=== PATIENT | male | born 1955 | race African-American/Black ===

== ENCOUNTER 2016-05-12 16:07 | Emergency (ER) | payer OTHER ==
[~2016-05-12] VITALS: Ht 188 cm; Wt 120.2 kg
[~2016-05-12 16:07] MED LIST: ASPI81TA2 PO; ATEN25TA; HYDR1TAB
[2016-05-12 16:37] VITALS: BP 136/100
[2016-05-12] MEDS ORDERED: HYDROCODONE/APAP 10/325MG 1 EA TABLET ONE (17:18)
[2016-05-12] MEDS ORDERED: HYDROCODONE/APAP 10/325MG 1 EA TABLET PO ONE (17:30)
== END 2016-05-12 17:25 | disposition home or self-care (01) ==
LOC: ER 16:13
DX: L03.115 Cellulitis of right lower limb (principal); I10 Essential (primary) hypertension; F17.200 Nicotine dependence, unspecified, uncomplicated
CPT/HCPCS: A4606; Z7610

== ENCOUNTER 2017-01-11 15:59 | Inpatient (IN) | payer OTHER ==
[~2017-01-11] VITALS: Ht 190.5 cm; Wt 116.1 kg
[~2017-01-11 15:59] MED LIST changes: -ATEN25TA; +ATEN25TA PO
--- NOTE | 2017-01-11 16:00 | NUR ---
CARSON FROM [employer] C/O NEAR SYNCOPE, HYPOTENSIVE 98/70. NOTED SATING LOW 80'S RA. PER PT REPORT HE TOOK CODEINE ON AN EMPTY STOMACH AND STARTED FEELING UNWELL AFTER. AT BS FOR EVAL. IV ACCESS WINDOW GLASS CUTTER OFF. SAFETY AND COMFORT MEASURES PROVIDED. WILL MONITOR.
[2017-01-11 16:26] LABS: BASOPHILS # (AUTO) 0.2 /CMM (0.0-0.2); BASOPHILS % (AUTO) 2.4 % (0.0-2.0); EOSINOPHILS # (AUTO) 0.2 /CMM (0.0-0.7); EOSINOPHILS % (AUTO) 1.8 % (0.0-6.0); HEMATOCRIT 42 % (39-51); HEMOGLOBIN 13.7 g/dL (13.5-17.5); LYMPHOCYTES # (AUTO) 2.1 /CMM (0.8-4.8); LYMPHOCYTES % (AUTO) 24.2 % (20.0-44.0); MEAN CORPUSCULAR HEMOGLOBIN 31 PG (26.0-33.0); MEAN CORPUSCULAR HGB CONC 33 g/dl (31.0-36.0); MEAN CORPUSCULAR VOLUME 94 fL (80-96); MONOCYTES # (AUTO) 0.5 /CMM (0.1-1.30); NEUTROPHILS # (AUTO) 5.8 /CMM (1.8-8.9); NEUTROPHILS % (AUTO) 65.6 % (43.0-81.0); PLATELET COUNT (AUTO) 146 /CMM (150-450); RDW COEFFICIENT OF VARIATION 12.8 (11.5-15.0); RED BLOOD CELL COUNT(AUTO) 4.45 MIL/uL (4.5-6.0); WHITE BLOOD COUNT (AUTO) 8.8 K/uL (4.3-11.0)
[2017-01-11] MEDS ORDERED: IV NS 0.9% 1,000 ML BAG IV ONE (16:30)
--- NOTE | 2017-01-11 16:30 | NUR ---
RT AT FOR ABG.
[2017-01-11] MEDS ORDERED: RANI150T12 PO (16:32)
[2017-01-11] MEDS ORDERED: ACET1TAB12 PO (16:32)
[2017-01-11] MEDS ORDERED: PRAV10TA40 PO (16:32)
[2017-01-11] MEDS ORDERED: ASPI81TA2 PO (16:32)
[2017-01-11] MEDS ORDERED: AMOX500C2 PO (16:32)
[2017-01-11 16:37] LABS: CALCIUM, SERUM 9.5 mg/dL (8.5-10.1); CREATININE 1.2 mg/dL (0.6-1.3); POTASSIUM 3.7 mmol/L (3.5-5.1)
[2017-01-11 16:43] LABS: TROPONIN I 0.059 ng/mL (0.00-0.056)
[2017-01-11 16:55] LABS: ABG BASE EXCESS -1.5 mmol/L; ABG OXYGEN SATURATION 91.3 % (92.0-98.5); ABG PCO2 40.7 mmHg (35.0-45.0); ABG PO2 64.8 mmHg (75.0-100.0); AaDO2 130.2 mmHg; COHb 2.2 % (0.5-1.5); O2Hb 88.4 % (94.0-97.0); SITE, ABG Right Radial; VENT MODE, BG NASAL CANNULA
--- NOTE | 2017-01-11 17:14 | NUR ---
[facility] PAGED [phone], DR GARCÍA PAVING RAMMER
[2017-01-11] MEDS ORDERED: ACETAMINOPHEN 325 MG TABLET PO PRN (17:30)
[2017-01-11] MEDS ORDERED: Z GUARD REMEDY 2 OZ OINT TP PRN (17:30)
[2017-01-11] MEDS ORDERED: ONDANSETRON HCL/PF 4 MG/2 ML VIAL IVP PRN (17:30)
[2017-01-11] MEDS ORDERED: ZOLPIDEM TARTRATE 5 MG TABLET PO PRN (17:30)
[2017-01-11] MEDS ORDERED: HYDROCODONE/APAP 5/325MG 1 EACH TABLET PO PRN (17:30)
[2017-01-11] MEDS ORDERED: MAGNESIUM HYDROXIDE 30 ML UDC PO PRN (17:30)
[2017-01-11] MEDS ORDERED: MAG HYDROX/AL HYDROX/SIMETH 30 ML UDC PO PRN (17:30)
--- NOTE | 2017-01-11 17:49 | NUR ---
BED- TELE 116-1
--- NOTE | 2017-01-11 18:40 | NUR ---
REPORT GIVEN TO ANAIS CARMEN FOR TELE ROOM 116-1.
[2017-01-11 20:00] VITALS: BP 100/76
--- NOTE | 2017-01-11 20:00 | NUR ---
RN ADMITTING TEL NOTES ADMITTED 61 YR OLD PT, AOX4, ON NC@ 2L, WELL TOLERATED, DENIES ANY PAIN, AMBULATORY WITH STEADY GAIT, SKIN INTACT. ADMITED FOR SYNCOPE, V/S STABLE @ THIS TIME. TROPONIN IN ER WAS 0.059 WITH REPEAT ORDER X2 WILL F/U ON RESULTS. PT STABLE AT THIS TIME ALL ADMITING ORDERS CARRIED PER PROTOCOL BY DR GARCÍA, ALL PT NEEDS ATTENDED, WITH SAFETY MEASURES IN PLACE. CALL LIGHT WITHIN REACH.
[2017-01-11] MEDS: ATORVASTATIN 10 MG TABLET PO SCH (21:41)
[2017-01-11] MEDS: IV NS 0.9% 1,000 ML IV PRN (21:50)
--- NOTE | 2017-01-11 23:56 | NUR ---
called verification manager dr lerma for troponin results trending from 00.59 to 0.715, v/s stable denies any discomfort, notified dr lerma that asa dose scheduled for 1800 was not given, with request to give and wait for last troponin to be done.
[2017-01-11] MEDS: ASPIRIN 81 MG TAB.CHEW PO SCH (23:58)
[2017-01-12] VITALS: BP 111/69
[2017-01-12 04:00] VITALS: BP 134/69
[2017-01-12 04:52] LABS: BASOPHILS % (AUTO) 0.2 % (0.0-2.0); EOSINOPHILS # (AUTO) 0.2 /CMM (0.0-0.7); EOSINOPHILS % (AUTO) 1.6 % (0.0-6.0); HEMATOCRIT 39 % (39-51); HEMOGLOBIN 12.7 g/dL (13.5-17.5); LYMPHOCYTES # (AUTO) 2.9 /CMM (0.8-4.8); LYMPHOCYTES % (AUTO) 28.2 % (20.0-44.0); MEAN CORPUSCULAR HEMOGLOBIN 32 PG (26.0-33.0); MEAN CORPUSCULAR HGB CONC 33 g/dl (31.0-36.0); MEAN CORPUSCULAR VOLUME 96 fL (80-96); MONOCYTES # (AUTO) 0.7 /CMM (0.1-1.30); MONOCYTES % (AUTO) 7.4 % (2.0-12.0); NEUTROPHILS # (AUTO) 6.3 /CMM (1.8-8.9); NEUTROPHILS % (AUTO) 62.6 % (43.0-81.0); PLATELET COUNT (AUTO) 137 /CMM (150-450); RDW COEFFICIENT OF VARIATION 13.9 (11.5-15.0); RED BLOOD CELL COUNT(AUTO) 4.03 MIL/uL (4.5-6.0); WHITE BLOOD COUNT (AUTO) 10.1 K/uL (4.3-11.0)
[2017-01-12 05:14] LABS: CALCIUM, SERUM 8.9 mg/dL (8.5-10.1); MAGNESIUM 1.9 mg/dL (1.8-2.4); PHOSPHORUS 3.5 mg/dL (2.5-4.9); POTASSIUM 4.2 mmol/L (3.5-5.1)
[2017-01-12 05:22] LABS: THYROID STIMULATING HORMONE 1.224 uIU/mL (0.358-3.74)
--- NOTE | 2017-01-12 06:32 | NUR ---
RN CLOSING TEL NOTES ENDORSED PT AOX4, ON NC@ 2L, WELL TOLERATED, DENIES ANY PAIN, AMBULATORY WITH STEADY GAIT, SKIN INTACT. ADMITED FOR SYNCOPE, V/S STABLE @ THIS TIME. TROPONIN IN ER WAS 0.059 WITH REPEAT ORDER X2 WILL F/U ON RESULTS. PT STABLE AT THIS TIME ALL ADMITING ORDERS CARRIED PER PROTOCOL BY DR GARCÍA, ALL PT NEEDS ATTENDED, WITH SAFETY MEASURES IN PLACE. CALL LIGHT WITHIN REACH. 0430 TROPONIN RESULTS RECEIVED 0.649H TRENDING DOWN, BNP 1163H, DR GERMAIN AWARE OF 2330 RESULTS, WILL ENDORSE TO F/U
[2017-01-12 08:00] VITALS: BP 112/82
[2017-01-12 12:00] VITALS: BP 120/72
[2017-01-12 16:00] VITALS: BP 137/83
[2017-01-12] MEDS: ASPIRIN 81 MG TAB.CHEW PO SCH (17:42)
--- NOTE | 2017-01-12 18:29 | NUR ---
PLEASE NOTE THAT PATIENT REMAINS IN NSR WITH NO SYNCOPAL EPISODES. PATIENT AMBULATED OOB WITH BRPS WITHOUT ASSIST ALL SHIFT AND ALSO WASHED UP IN BATHROOM WITHOUT ASSIST. APPETITE GOOD. PLEASANT AND COOPERATIVE. PATIENT SHOWS NO SIGNS OF ACUTE CARDIAC/RESPIRATORY DISTRESS OR SUPPRESSION.
--- NOTE | 2017-01-12 19:34 | NUR ---
ELECTRODE CLEANER INITIAL NOTE PT RECEIVED IN NO ACUTE DISTRESS AT THIS TIME. PT IS A/O X4 ABLE TO MAKE NEEDS KNOWN. ON TELE WITH SR. PATIENT IS ABLE TO WALK AND GO TO RESTROOM BY HIS OWN WITH STANDBY ASSISTANCE. PT HAS A LEFT HAND 18G THAT IS RUNNING IVF NS @75CC/HR. COMFORT AND SAFETY MEASURES TO BE ENSURED DURING THE SHIFT. TO CONTINUE TO MONITOR DURING THE SHIFT.
[2017-01-12 20:00] VITALS: BP 132/86
[2017-01-12] MEDS: ATORVASTATIN 10 MG TABLET PO SCH (21:01)
[2017-01-13] VITALS (7 sets, daily range): BP systolic 126–140; BP diastolic 79–89
--- NOTE | 2017-01-13 05:48 | NUR ---
PHOTORESIST PRINTER CLOSING NOTE PT REMAINS IN NO ACUTE DISTRESS AT THIS TIME. NO COMPLAINT OF CHEST PAIN/PAIN DURING THE SHIFT. BREATHING PATTERN IS NORMAL WITH ADEQUATE CHEST RISE/FALL DURING THE SHIFT. PT REMAINED ASLEEP FOR MOST OF THE SHIFT BUT WHEN AWAKE WAS ABLE TO MAKE NEEDS KNOWN. ABLE TO WALK TO RESTROOM OR USE URINAL. IV IS RUNNING NS @75CC ND TOLERATING WELL. ALL DUE MEDICATIONS WERE ADMINISTERED ORDERED. COMFORT AND SAFETY MEASURES WERE ENSURED DURING THE SHIFT. WILL ENDORSE CARE TO AM NURSE.
[2017-01-13] MEDS: IV NS 0.9% 1,000 ML IV PRN ×2 (06:03→20:59)
--- NOTE | 2017-01-13 07:12 | NUR ---
RN NOTES RECEIVED PT ON BED , A/Ox3, RESPIRATION EVEN AND UNLABORED, NO SOB NOTED, ON TELE SR HR IN 70'S , NS AT 75CC/HR RUNNING VIA L HAND IV G 18 SITE CDI, PT RENEE ANY PAIN , SR UP x3, CALL LIGHT WITHIN EASY REACH, BED LOCKED AND IN LOWEST POSITION , WILL CONTINUE TO MONITOR PT CLSOELY .
[2017-01-13] MEDS: ASPIRIN 81 MG TAB.CHEW PO SCH (17:18)
--- NOTE | 2017-01-13 18:53 | NUR ---
RN NOTES PT STABLE ,RENEE ANY DISTRESS , NS AT 785CC/HR RUNNING VIA L HAND IV G 18, OUT OF BED TO BR , SR UP x3, CALL LIGHT WITHIN EASY REACH , BED LOCKED AND IN LOWEST POSITION , WILL ENDORSE TO PAPER STEAMER NURSE FOR JEOVANY.
--- NOTE | 2017-01-13 20:02 | NUR ---
VETERINARY RECEPTIONIST INITIAL NOTE PT RECEIVED IN NO ACUTE DISTRESS AT THIS TIME. NO COMPLAINT OF CHEST PAIN/PAIN. BREATHING PATTERN IS NORMAL WITH ADEQUATE CHEST RISE/FALL DURING THE SHIFT. ALL NEEDS ATTENDED. ABLE TO WALK TO RESTROOM OR USE URINAL. IV IS RUNNING NS @75CC ND TOLERATING WELL. ALL DUE MEDICATIONS WERE ADMINISTERED ORDERED. COMFORT AND SAFETY MEASURES WERE ENSURED DURING THE SHIFT. WILL ENDORSE CARE TO AM NURSE.
[2017-01-13] MEDS: ATORVASTATIN 10 MG TABLET PO SCH (21:00)
[2017-01-14] VITALS: BP 117/87
[2017-01-14 04:00] VITALS: BP 126/95
--- NOTE | 2017-01-14 06:59 | NUR ---
CUSTODY ASSISTANT CLOSING NOTE PT ENDORSED IN NO ACUTE DISTRESS AT THIS TIME. NO COMPLAINT OF CHEST PAIN/PAIN. BREATHING PATTERN IS NORMAL WITH ADEQUATE CHEST RISE/FALL DURING THE SHIFT. ALL NEEDS ATTENDED. ABLE TO WALK TO RESTROOM OR USE URINAL. IV IS RUNNING NS @75CC ND TOLERATING WELL. ALL DUE MEDICATIONS WERE ADMINISTERED ORDERED. COMFORT AND SAFETY MEASURES WERE ENSURED DURING THE SHIFT. WILL ENDORSE CARE TO AM NURSE.
--- NOTE | 2017-01-14 07:40 | NUR ---
FILTER TENDER JELLY OPENING RECEIVED PATIENT A/XO4 DENIES SOB, DIFFICULTY BREATHING OR PAIN. PATIENT APPEARS STABLE. PATIENT SINUS TACHY 102-110 WITH ACTIVITY. PATIENT REQUESTED IVF TO BE REMOVED FOR MORNING HYGIENE. PATIENT CURRENTLY ON 2LPM NC, WILL TITRATE TOLERATED. PATIENT STATES NO NEEDS AT THIS TIME. WILL ROUND Q2H OR LESS PER NEEDS
[2017-01-14 08:00] VITALS: BP 138/90
[2017-01-14 09:19] VITALS: BP 138/90
[2017-01-14 12:00] VITALS: BP 129/78
[2017-01-14] MEDS: IV NS 0.9% 1,000 ML IV PRN (14:02)
[2017-01-14] MEDS ORDERED: METO25TA20 PO (15:09)
[2017-01-14] MEDS ORDERED: ASPI81TA2 PO (15:09)
[2017-01-14] MEDS ORDERED: ATOR10TA PO (15:09)
[2017-01-14 16:00] VITALS: BP 138/89
--- NOTE | 2017-01-14 18:00 | NUR ---
telecom coordinatormanager of international note Discharged patient at 18:00. No acute distress noted, vital signs stable Explained discharged medication's instructions. Patient Verbalized understanding and signed dc material. All belongins taken; Inventory signed. Patient was transferred to [facility] for cardiac cath via ambulance.Patient transferred with IV access, clean, dry, intact, no s/s of infection noted. Skin intact, no wounds or abnormalities present.
[2017-01-14] MEDS ORDERED: METOPROLOL TARTRATE 25 MG TABLET PO SCH (21:00)
== END 2017-01-14 18:14 | disposition short-term general hospital (02) | DRG 190 ==
LOC: ER 16:00 → TELE1 18:06 → MEDSG1 01-14 12:58
DX: I21.A1 Myocardial infarction type 2 (principal); I95.9 Hypotension, unspecified; E86.0 Dehydration; I10 Essential (primary) hypertension; J44.9 Chronic obstructive pulmonary disease, unspecified; E66.9 Obesity, unspecified; E78.5 Hyperlipidemia, unspecified; F17.210 Nicotine dependence, cigarettes, uncomplicated; R55 Syncope and collapse; Z68.32 Body mass index [BMI] 32.0-32.9, adult; R94.31 Abnormal electrocardiogram [ECG] [EKG]; T40.2X5A Adverse effect of other opioids, initial encounter; Y92.009 Unspecified place in unspecified non-institutional (private) residence as the place of occurrence of the external cause
CPT/HCPCS: 36415; 36600; 71010-TC; 80048-TC; 80061-TC; 82803-TC; 83735-TC; 83880; 84100-TC; 84443-TC; 84484-TC; 85025-TC; 87081-TC; 93307-TC; A4606; J7030; Z7610

== ENCOUNTER 2020-11-23 11:00 | Emergency (ER) | payer OTHER ==
[~2020-11-23] VITALS: Ht 188 cm; Wt 117.9 kg
[~2020-11-23 11:00] MED LIST changes: +ACET1TAB12 PO; +AMOX500C2 PO; +ASPI-1169 PO; -ASPI81TA2 PO; +ATOR10TA PO; -HYDR1TAB; +METO25TA20 PO; +PRAV10TA40 PO; +RANI-655 PO
--- NOTE | 2020-11-23 11:05 | NUR ---
TO ER BED 1 FOR MD COHN
--- NOTE | 2020-11-23 11:11 | NUR ---
SEEN BY DR KWAN,WAITING FOR FURTHER ORDERS
[2020-11-23 11:37] LABS: BASOPHILS # (AUTO) 0.1 K/uL (0.0-0.2); BASOPHILS % (AUTO) 1.3 % (0.0-2.0); EOSINOPHILS % (AUTO) 1.4 % (0.0-6.0); HEMATOCRIT 42 % (39-51); HEMOGLOBIN 13.8 g/dL (13.5-17.5); LYMPHOCYTES # (AUTO) 2.6 K/uL (0.8-4.8); LYMPHOCYTES % (AUTO) 30.9 % (20.0-44.0); MEAN CORPUSCULAR HGB CONC 33 g/dl (31.0-36.0); MEAN CORPUSCULAR VOLUME 99 fL (80-96); MONOCYTES # (AUTO) 0.8 K/uL (0.1-1.30); MONOCYTES % (AUTO) 9.6 % (2.0-12.0); NEUTROPHILS # (AUTO) 4.8 K/uL (1.8-8.9); NEUTROPHILS % (AUTO) 56.8 % (43.0-81.0); PLATELET COUNT (AUTO) 260 K/uL (150-450); RED BLOOD CELL COUNT(AUTO) 4.23 MIL/uL (4.5-6.0); WHITE BLOOD COUNT (AUTO) 8.4 K/uL (4.3-11.0)
[2020-11-23 11:42] LABS: CALCIUM, SERUM 8.8 mg/dL (8.5-10.1); CREATININE 1.1 mg/dL (0.6-1.3); POTASSIUM 4.2 mmol/L (3.5-5.1)
[2020-11-23 11:48] LABS: ALBUMIN 3.6 g/dL (3.4-5.0); BILIRUBIN,DIRECT 0.2 mg/dL (0.0-0.2); TOTAL PROTEIN, SERUM 7.8 g/dL (6.4-8.2)
[2020-11-23] MEDS ORDERED: IV NS 0.9% 250 ML IV ONE (12:11)
[2020-11-23] MEDS ORDERED: IOHEXOL-300 100 ML VIAL IV ONE (12:11)
--- NOTE | 2020-11-23 12:16 | NUR ---
TRANSFERRED FOR CT SCAN
[2020-11-23] MEDS ORDERED: IBUP-1957 PO (12:58)
[2020-11-23 13:14] VITALS: BP 149/87
--- NOTE | 2020-11-23 13:19 | NUR ---
IV removed. Catheter intact and site benign. Pressure and 4x4 applied to site. No bleeding noted.Patient discharged to home in stable condition. Written and verbal after care instructions given. Patient verbalizes understanding of instruction.All belonings taken.Prescriptions given
== END 2020-11-23 13:18 | disposition home or self-care (01) ==
LOC: ER 11:10
DX: R10.9 Unspecified abdominal pain (principal); F17.200 Nicotine dependence, unspecified, uncomplicated; Z98.890 Other specified postprocedural states; Z60.2 Problems related to living alone; Z79.899 Other long term (current) drug therapy; Z79.82 Long term (current) use of aspirin
CPT/HCPCS: 36415; 74176; 80048; 80076; 83690; 85025; 99284; J7050; Q9967